=== PATIENT | female | born 1985 | race Caucasian/White ===

== ENCOUNTER 2018-03-18 07:40 | Day surgery (SDC) | payer OTHER ==
[2018-03-11 11:22] LABS: HEMATOCRIT 36.6 % (36.0-47.0); HEMOGLOBIN 12.5 g/dL (12.0-15.5); MEAN CORPUSCULAR HEMOGLOBIN 28.8 pg (27.0-33.4); MEAN CORPUSCULAR VOLUME 85 fl (80-97); PLATELET COUNT 308 10^3/uL (150-450); RED BLOOD COUNT 4.33 10^6/uL (3.72-5.28); RED CELL DISTRIBUTION WIDTH 13.2 % (11.5-14.0); WHITE BLOOD COUNT 7.3 10^3/uL (4.0-10.5)
[2018-03-11 11:37] LABS: ANION GAP 8 (5-19); BLOOD UREA NITROGEN 16 mg/dL (7-20); CALCIUM 9.2 mg/dL (8.4-10.2); CARBON DIOXIDE 28 mmol/L (22-30); CHLORIDE 104 mmol/L (98-107); GLUCOSE 101 mg/dL (75-110); POTASSIUM 4.2 mmol/L (3.6-5.0); SODIUM 139.6 mmol/L (137-145)
[2018-03-11 12:07] LABS: APPEARANCE,URINE CLOUDY; BILIRUBIN,URINE NEGATIVE (NEGATIVE); GLUCOSE, URINE NEGATIVE (NEGATIVE); KETONES,URINE NEGATIVE (NEGATIVE); LEUKOCYTE ESTERASE,URINE LARGE (NEGATIVE); NITRITE,URINE NEGATIVE (NEGATIVE); PROTEIN,URINE 100 mg/dL (NEGATIVE); URINE SPECIFIC GRAVITY 1.031; UROBILINOGEN,URINE NEGATIVE mg/dL (<2.0)
[2018-03-11 12:08] LABS: COLOR,URINE YELLOW
[~2018-03-18 07:40] MED LIST: ACETAMINOPHEN 1,000 MG/100 ML RTUPB IV ONE; BUPIVACAINE HCL 0.25 % INJ/PF (2.5 MG/1 ML) 30 ML VIAL ONE; CEFAZOLIN 2 GM/D5W RTU 2 GM/50 ML RTUPB IV ONE; CEFAZOLIN 2 GM/D5W RTU 2 GM/50 ML RTUPB IV PRN; FENTANYL CITRATE INJ/PF 100 MCG/2 ML AMPUL ONE; GABAPENTIN 300 MG CAPSULE ONE; GABAPENTIN 300 MG CAPSULE PO PRN; HYDROMORPHONE HCL INJ/PF 2 MG/ML AMPULE ONE; LACTATED RINGERS 1000 ML IV PRN; MIDAZOLAM 2 MG/2 ML INJ ONE; PROPOFOL INJ 200 MG/20 ML VIAL IV ONE
[2018-03-18] MEDS ORDERED: DEXAMETHASONE SOD PHOSPHATE INJ 4 MG/1 ML VIAL ONE (12:05)
[2018-03-18] MEDS ORDERED: NEOSTIGMINE METHYLSULFATE 10 MG/10 ML VIAL ONE (12:05)
[2018-03-18] MEDS ORDERED: LIDOCAINE 2% INJ-PF (20 MG/ML) 2 ML AMPUL ONE (12:05)
[2018-03-18] MEDS ORDERED: GLYCOPYRROLATE 1 MG/5 ML SYRINGE ONE (12:05)
[2018-03-18] MEDS ORDERED: VECURONIUM BROMIDE INJ 10 MG VIAL IV ONE (12:05)
[2018-03-18] MEDS ORDERED: ONDANSETRON HCL INJ/PF 4 MG/2 ML SDV ONE (12:05)
[2018-03-18] MEDS ORDERED: PROMETHAZINE HCL INJ 25 MG/1 ML VIAL IV PRN (12:24)
[2018-03-18] MEDS ORDERED: DIPHENHYDRAMINE HCL 50 MG/ML VIAL IV PRN (12:24)
[2018-03-18] MEDS ORDERED: MEPERIDINE HCL/PF INJ 25 MG/1 ML DISP.SYRIN IV PRN (12:24)
[2018-03-18] MEDS ORDERED: FENTANYL CITRATE INJ/PF 100 MCG/2 ML AMPUL IV PRN ×3 (12:24)
[2018-03-18] MEDS ORDERED: OXYCODONE-ACETAMINOPHEN 5-325 MG TABLET PO PRN (12:26)
[2018-03-18] MEDS ORDERED: ONDANSETRON HCL INJ/PF 4 MG/2 ML SDV IV PRN (12:27)
--- NOTE | 2018-03-18 12:41 | Discharge Summary ---
Discharge Summary (SDC) - Discharge Final Diagnosis: Left adnexal mass Uterine and posterior caul de sac endometriosis Date of Surgery: 03/18/18 Discharge Date: 03/18/18 Condition: Good Forms: Post Operative Treatment or Instructions: Laparoscopic left oophorectomy and fulgeration of endometriosis Referrals: CLAUDINE WASHBURN MD [NO LOCAL MD] - (Call Mrs. Hinkle at [phone] to make follow up appt. You can call HOLLY Guillen with clinical questions or concerns at [phone]. ) Discharge Diet: As Tolerated Respiratory Treatments at Home: Deep Breathing/Coughing Discharge Activity: Activity As Tolerated, Balance Activity w/Rest, No Lifting Over 10 Pounds, Slowly Increase Activity, Walk Frequently Report the Following to Your Physician Immediately: Shortness of Breath, Vomiting, Increase in Pain, Fever over 101 Degrees, Unusual Bleeding, Drainage- Yellow, Drainage-Foul Smelling, IV Site Infection Signs, Urinary Infection Signs
[2018-03-18 16:02] VITALS: BP 123/83
--- NOTE | 2018-04-18 15:58 | OPERATIVE REPORT E ---
Operative Report NAME: YVONNE HARVEY : 1985 AGE: 32Y DATE OF SURGERY: 03/18/2018 ROOM: 226 PREOPERATIVE DIAGNOSIS: LEFT ADNEXAL MASS. POSTOPERATIVE DIAGNOSIS: LEFT ADNEXAL MASS, ENDOMETRIOSIS SUSPECTED IN THE POSTERIOR CUL-DE-SAC AND ON THE UTERUS. OPERATION: ROBOTIC ASSISTED TOTAL LAPAROSCOPIC LEFT OOPHORECTOMY AND FULGURATION OF ENDOMETRIOSIS. SURGEON: CLAUDINE WASHBURN MD PHYSICIAN PRACTICE CONSULTANT: Zuleyka Landaverde MD ANESTHESIA: General. COMPLICATIONS: None. ESTIMATED BLOOD LOSS: 10 mL URINE OUTPUT: Clear at the end of the procedure. SPECIMENS: Left ovary. FINDINGS: Left ovarian enlargement; when incised, found multiple tissue types including hair, consistent with dermoid. Ovary removed and sent to pathology. Areas with pustular and powder burn lesions throughout the pelvis on the surface of the uterus and in the posterior cul-de-sac. Otherwise, normal appearing pelvic anatomy. Healthy fallopian tubes and normal appearing right ovary. INDICATION: This is a 32-year-old female with a history of left adnexal mass persistent on pelvic imaging for several months, and found to be complex in nature, suggestive of a dermoid. She is also desiring fertility treatments and removal of the mass was recommended by Reproductive Endocrinology prior to her starting infertility treatments. After discussing the risks, benefits, and alternatives including but not limited to observation, medical management, and open procedure were discussed with the patient, she elected for the above procedure. PROCEDURE: She was properly consented and taken to the operating room, where general anesthesia was introduced with endotracheal intubation. She was transferred to a dorsal lithotomy position using adjustable Eulalio stirrups and prepped and draped in the usual sterile fashion. A surgical timeout was called. Jefferson catheter was placed, and then placement of a Hulka uterine manipulator was placed in a typical fashion. Gloves were changed and we proceeded above, where 0.25% plain Marcaine local anesthetic was placed supraumbilical, and a 12 mm skin incision was made with a scalpel followed by a Veress needle, introduced into the peritoneal cavity and correct placement ascertained by a drop in CO2 pressure to 2 mmHg. Pneumoperitoneum was established to a pressure of 15 mmHg. A 12 mm bladeless trocar was advanced into the pneumoperitoneum and immediate visualization with the camera demonstrated atraumatic entry. We subsequently placed two right and one left lateral port of 8 mm in size, following the typical routine of local anesthetic followed by a skin incision, followed by placement of the port under direct visualization. With all ports in place, the patient was put in steep Trendelenburg position. The robot was then docked and I scrubbed out and proceeded to the robotic console. Pelvic anatomy was inspected and the findings are noted above. The ureter *------* usual course at the pelvic brim bilaterally. Dissection was begun by incising the left ovarian enlargement and findings were noted above, including hair protruding from the area; confirmed that this was, in fact, most likely dermoid. This tissue was then also inspected and found to involve greater than 90% of ovary with no residual normal appearing ovarian tissue to be from this mass. Therefore, the decision to take the entire left ovary was made. A left oophorectomy was completed using the vessel sealer, and the ovary was dissected from the IP ligament and its attachments to the fallopian tube. Hemostasis was excellent. The specimen was placed in a laparoscopic bag and removed through the nurse practitioner physician assistant port with minimal extension of the incision to approximately 15 mm in size. At this point in time, careful inspection of the pelvis was undertaken and there were noted to be several lesions of endometriosis on the body of the uterus and the posterior cul-de-sac. Bipolar cautery was used to treat these areas until no more visible lesions were found. Otherwise, pelvic anatomy was noted to be normal. At this point in time, all instruments were removed. Careful inspection of the pelvis with copious irrigation was then undertaken and there was no active bleeding. The suction special effects artist was removed from the pelvis. All ports and CO2 gas were removed from the pelvis and the robot was undocked. The patient was taken out of Trendelenburg and the 12 mm port site fascia was closed with 0 Vicryl suture. The skin of the 8 mm and 12 mm ports was closed with 4-0 Monocryl in a subcuticular fashion, and a Dermabond dressing was applied. The Hulka uterine manipulator and the Jefferson catheter were removed. Anesthesia was reversed. Sponge, lap, and needle counts were correct at the end of the procedure, and the patient was taken to the PACU in stable condition. DICTATING PHYSICIAN: CLAUDINE WASHBURN M.D. [id number] PHY#: [id number] ID: [id number] JOB#: [id number] ACCT: [id number] cc:CLAUDINE WASHBURN M.D. >
== END 2018-03-18 17:30 | disposition home or self-care (01) ==
LOC: OROUT 07:40 → 2S 13:17 → OROUT 17:30
PROVIDERS: ATTEND Obstetrics & Gynecology
DX: D27.1 Benign neoplasm of left ovary (principal); N83.8 Other noninflammatory disorders of ovary, fallopian tube and broad ligament; N80.3 Endometriosis of pelvic peritoneum; N80.0 Endometriosis of uterus
CPT/HCPCS: 86900; 86901; 36415 ×2; 86850; 85027; 81025; 80048; 81001; 88304 ×2; 88305 ×2; 58661; 58662; J2250; J1100; J3490 ×3; J1170; J2405; J2704; J0690; J0131; 840; J3010

== ENCOUNTER → 2019-03-07 | Outpatient (CLI) | payer OTHER | LOC: OD 10:40 | PROVIDERS: ATTEND Radiology Radiation Oncology | DX: C53.0 Malignant neoplasm of endocervix (principal) | CPT/HCPCS: 36415; 84703 ==

== ENCOUNTER → 2019-08-12 | Outpatient (CLI) | payer OTHER ==
--- NOTE | 2019-08-12 14:32 | RADIOLOGY REPORT (SQ) ---
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 RADIONUCLIDE AND DOSE: 9.97 mCi F18 FDG The route of agent administration: Intravenous FASTING BLOOD SUGAR: 108 mg/dl CONTRAST TYPE AND DOSE: No CT contrast given. TECHNIQUE: Blood glucose level was verified. Above dose of FDG was injected intravenously. 2-D seg mented attenuation correction images were obtained from the base of the skull to the midthighs. Nonc ontrast CT images were obtained for attenuation correction and fusion with emission images. CT image s were performed without oral or intravenous contrast and are not sensitive for parenchymal lesions. A series of overlapping emission PET images were obtained. Images reviewed and manipulated at [facility] work station by the radiologist. Images stored on PACS. LIMITATIONS: None. FINDINGS: HEAD AND NECK: No areas of abnormal metabolic activity in the soft tissues of the head and neck. CHEST: No areas of abnormal metabolic activity in the chest. ABDOMEN AND PELVIS: The liver demonstrates homogeneous uptake with an average SUV of 2.4. There is e xpected physiologic activity throughout the gastrointestinal and genitourinary tracts. There are no areas of abnormal metabolic activity in the abdomen and pelvis. PROXIMAL LOWER EXTREMITIES: No areas of abnormal metabolic activity in the soft tissues of the lower extremities. BONES: No areas of abnormal metabolic activity in the skeleton. ADDITIONAL CT FINDINGS: The soft tissue in the anterior mediastinum likely represents residual thymus . The stranding in the presacral space and adnexa is nonspecific. There is no pelvic mass or adenop athy. The urinary bladder is contracted. OTHER: No other findings. IMPRESSION: No metabolic evidence of metastatic disease. TECHNICAL DOCUMENTATION: JOB ID: [id number] 2010 [employer]- All Rights Reserved Reading location - IP/workstation name: [email or web address]
== END ==
LOC: RAD 08:29
PROVIDERS: ATTEND Nurse Practitioner Family
DX: C53.0 Malignant neoplasm of endocervix (principal)
CPT/HCPCS: 78815; A9552